=== PATIENT | female | born 1965 | race American Indian/Alaskan Native ===

== ENCOUNTER 2018-07-18 10:14 | Outpatient (CLI) | payer OTHER | END 2018-07-18 10:15 | disposition home or self-care (01) | LOC: LAB 10:14 ==

== ENCOUNTER 2018-09-26 08:00 | Outpatient (CLI) | payer OTHER | END 2018-09-26 08:01 | disposition home or self-care (01) | LOC: LAB 08:00 ==

== ENCOUNTER 2018-09-27 08:28 | Outpatient (CLI) | payer OTHER | END 2018-09-27 08:29 | disposition home or self-care (01) | LOC: RAD 08:28 ==